=== PATIENT | male | born 1995 | race Caucasian/White ===

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

== ENCOUNTER → 2017-01-14 | Outpatient (CLI) | payer OTHER ==
--- NOTE | 2017-01-14 12:11 | DIAGNOSTIC IMAGING REPORT ---
MRI OF THE RIGHT KNEE CLINICAL HISTORY: Right knee injury. COMPARISON STUDY: No priors. TECHNIQUE: MRI of the right knee was performed utilizing proton density, T1, and T2-weighted sequences in the axial, sagittal, coronal planes. IV contrast was not administered for this examination. Note that interpretation is suboptimal without plain film correlate. FINDINGS: Menisci: The medial and lateral menisci are intact. Ligaments: The anterior and posterior cruciate ligaments are intact. The medial and lateral collateral ligaments are within normal limits. Extensor mechanism: The extensor mechanism is intact. Hoffa's fat pad is normal in appearance. There is nonspecific edema within the suprapatellar fat pad. Articular cartilage and bone: The articular cartilage is intact and well maintained all 3 compartments. There is bony contusion identified within the anterior aspect of the medial femoral condyle. No additional foci of contusion are suspected. Joint effusion: There is a small joint effusion. Soft tissues: The musculature surrounding the knee joint is normal in bulk and signal intensity. A loculated cystic structure posterior to the medial femoral metaphysis measures up to 2.8 cm likely represents a ganglion cyst. Soft tissue contusion is noted in the medial aspect of the knee. IMPRESSION: 1. There is no evidence of meniscal or ligamentous injury in the right knee. 2. There is a bony contusion within the anterior aspect of the medial femoral condyle. 3. Small joint effusion. 4. There is nonspecific edema identified within the suprapatellar fat pad. This can be seen in the setting of the quadriceps fat pad impingement syndrome. Clinical correlation will be required. 5. A ganglion cyst is seen posterior to the medial distal femoral metaphysis. Electronically signed by: Cole Mancera M.D. 01/14/2017 12:10 PM Dictated Date/Time: 01/14/2017 12:06 PM
== END | disposition home or self-care (01) ==
LOC: C.MRI 10:59
PROVIDERS: ATTEND Orthopaedic Surgery
DX: S83.511A Sprain of anterior cruciate ligament of right knee, initial encounter (principal); X58.XXXA Exposure to other specified factors, initial encounter; M67.461 Ganglion, right knee

== ENCOUNTER → 2017-05-30 | Outpatient (CLI) | payer OTHER | END | disposition home or self-care (01) | LOC: C.RDSM 13:27 | PROVIDERS: ATTEND Family Medicine | DX: M25.372 Other instability, left ankle (principal) ==

== ENCOUNTER → 2017-05-31 | Outpatient (CLI) | payer OTHER ==
--- NOTE | 2017-05-31 23:50 | DIAGNOSTIC IMAGING REPORT ---
LEFT LOWER EXT JOINT WITHOUT CLINICAL HISTORY: 21 years-old Male with acute left-sided ankle pain. Patient reports that he injured his left ankle 3 days prior at football practice and now has medial pain. Associated swelling and bruising. COMPARISON: Left ankle radiographs 05/30/2017. TECHNIQUE: Multiplanar, multi sequence MRI of the left ankle was performed without contrast. FINDINGS: LATERAL LIGAMENT COMPLEX: There is thickening with intermediate signal within the anterior talofibular ligament compatible with chronic sprain. The calcaneofibular ligament is also thickened with intermediate signal compatible with chronic sprain. The posterior talofibular ligament appears intact. SYNDESMOTIC LIGAMENTS: The anterior-inferior tibiofibular ligament is mildly thickened suggesting chronic sprain. The Interosseous membrane and posterior-inferior tibiofibular ligaments are intact and unremarkable. DELTOID LIGAMENT COMPLEX: There is a high-grade to near complete tear of the deep and superficial fibers of the deltoid ligament distal fibers. Retracted redundant fibers are seen adjacent to the medial malleolus. Small avulsion fracture fragments are seen on comparison left ankle radiographs dated 05/30/2017 which are not appreciated on MR. ANTERIOR TENDONS: The tibialis anterior, extensor hallucis longus and extensor digitorum longus tendons are normal in position, morphology and signal. LATERAL TENDONS: The peroneus longus tendon is intact with moderate amount of tenosynovitis present, likely reactive. There is moderate thickening with intermediate signal of the peroneus longus tendon compatible with tendinosis. There is a small linear fluid-filled cleft along the inframalleolar portion of the peroneus longus tendon as seen on image 23 of the axial series suspicious for low-grade split tear. MEDIAL TENDONS: The posterior tibialis, flexor digitorum longus and flexor hallucis longus tendons are intact with moderate amount of tibialis posterior tenosynovitis, also likely reactive. PLANTAR FASCIA: The medial and lateral bundles of the plantar fascia are normal in morphology and signal. There is no evidence of acute plantar fasciitis or tear. No evidence of plantar fascial nodules. ACHILLES TENDON: The Achilles tendon is normal in position, morphology and signal. Mild amount of fluid seen within the retrocalcaneal bursa. Additionally, there is a considerable amount of edema within the Kager fat pad. SINUS TARSI: There is normal fat signal within the sinus tarsi. The interosseous and cervical ligaments are normal. The navicular-calcaneal (spring) ligament is without acute abnormality. TARSAL TUNNEL: There are no obstructing lesions within the tarsal tunnel. BONE MARROW: There is a moderate amount of bone marrow edema involving the calcaneus at the peroneal tubercle suggesting contusion without fracture identified. Additionally, there is mild bone marrow edema of the lateral aspect of the talus. SOFT TISSUES: There is a considerable amount of soft tissue edema about the ankle, greatest medially with small to moderate joint effusion. IMPRESSION: 1. High-grade to near complete tear of the deep and superficial fibers of the deltoid ligament with considerable amount of associated soft tissue edema about the ankle with moderate sized joint effusion. Small avulsion fracture bone fragments are seen on comparison radiograph dated 05/30/2017 within the region of the deltoid ligament, however are not appreciated on MR. 2. Bone marrow edema about the calcaneus and talus suggests associated bone marrow contusion without fracture. 3. Multifocal tenosynovitis as above is likely reactive. 4. Chronic sprains of the anterior talofibular and calcaneal fibular ligaments. 5. Suspicious low-grade split tear of the peroneus brevis tendon. The above report was generated using voice recognition software. It may contain grammatical, syntax or spelling errors. Electronically signed by: Kavin Hagen M.D. 05/31/2017 11:49 PM Dictated Date/Time: 05/31/2017 11:25 PM
== END | disposition home or self-care (01) ==
LOC: C.MRI 21:19
PROVIDERS: ATTEND Family Medicine
DX: S93.422A Sprain of deltoid ligament of left ankle, initial encounter (principal); S93.412A Sprain of calcaneofibular ligament of left ankle, initial encounter; S93.492A Sprain of other ligament of left ankle, initial encounter; X58.XXXA Exposure to other specified factors, initial encounter; Y93.61 Activity, american tackle football; F90.9 Attention-deficit hyperactivity disorder, unspecified type